=== PATIENT | female | born 1940 | race Caucasian/White ===

== ENCOUNTER 2017-07-19 08:41 | Emergency (ER) | payer MEDICARE, BC ==
[~2017-07-19] VITALS: Ht 162.6 cm; Wt 72.6 kg
[2017-07-19] MEDS: IV NS 0.9% 500 ML BAG IV ONE (09:18)
[2017-07-19 09:24] LABS: BASOPHILS % (AUTO) 0.2 % (0.0-2.0); EOSINOPHILS # (AUTO) 0.3 /CMM (0.0-0.7); EOSINOPHILS % (AUTO) 5.2 % (0.0-6.0); HEMATOCRIT 39 % (33-45); HEMOGLOBIN 12.7 g/dL (11.5-14.8); LYMPHOCYTES # (AUTO) 1.5 /CMM (0.8-4.8); LYMPHOCYTES % (AUTO) 27.2 % (20.0-44.0); MEAN CORPUSCULAR HEMOGLOBIN 29 PG (26.0-33.0); MEAN CORPUSCULAR HGB CONC 32 g/dl (31.0-36.0); MEAN CORPUSCULAR VOLUME 90 fL (82-100); MONOCYTES # (AUTO) 0.1 /CMM (0.1-1.30); MONOCYTES % (AUTO) 2.3 % (2.0-12.0); NEUTROPHILS # (AUTO) 3.5 /CMM (1.8-8.9); NEUTROPHILS % (AUTO) 65.1 % (43.0-81.0); PLATELET COUNT (AUTO) 178 /CMM (150-450); RED BLOOD CELL COUNT(AUTO) 4.35 MIL/uL (4.0-5.2); WHITE BLOOD COUNT (AUTO) 5.4 K/uL (4.3-11.0)
[2017-07-19 09:25] LABS: APPEARANCE,URINE CLEAR (CLEAR); BILIRUBIN,URINE NEGATIVE (NEGATIVE); BLOOD, URINE NEGATIVE Ery/uL (NEGATIVE); COLOR,URINE YELLOW (YELLOW); KETONES,URINE NEGATIVE (NEGATIVE); LEUKOCYTE ESTERASE ,URINE NEGATIVE (NEGATIVE); NITRITE, URINE NEGATIVE (NEGATIVE); PROTEIN,URINE NEGATIVE (NEGATIVE); UGLUCOSE NEGATIVE (NEGATIVE); UROBILINOGEN,URINE 0.2 EU/dL (0.2)
[2017-07-19 09:28] LABS: CARBON DIOXIDE 29 mmol/L (21-32); CHLORIDE 105 mmol/L (98-107); CREATININE 0.8 mg/dL (0.6-1.3); GLUCOSE 113 mg/dL (74-106); POTASSIUM 3.2 mmol/L (3.5-5.1); SODIUM SERUM 144 mmol/L (136-145); UREA NITROGEN, BLOOD 17 mg/dL (7-18)
[2017-07-19 09:32] LABS: CALCIUM, SERUM 8.9 mg/dL (8.5-10.1)
[2017-07-19] MEDS ORDERED: MORPHINE SULFATE INJ 4 MG/ML DISP.SYRIN ONE (10:12)
[2017-07-19] MEDS: MORPHINE SULFATE INJ 2 MG/ML DISP.SYRIN IV ONE (10:21)
[2017-07-19] MEDS ORDERED: CRAN425C PO (10:49)
[2017-07-19] MEDS ORDERED: SACC250C6 PO (10:49)
[2017-07-19] MEDS ORDERED: OXYB5TAB PO (10:49)
[2017-07-19] MEDS ORDERED: PANT40TA4 PO (10:49)
[2017-07-19] MEDS ORDERED: BACL10TA PO (10:49)
[2017-07-19] MEDS ORDERED: SERT100T PO (10:49)
[2017-07-19] MEDS ORDERED: DOCU-170 PO (10:49)
[2017-07-19] MEDS ORDERED: LEVE500T9 PO (10:49)
[2017-07-19] MEDS ORDERED: HYDR12.55 PO (10:49)
[2017-07-19] MEDS ORDERED: ASPI81TA2 PO (10:49)
[2017-07-19] MEDS ORDERED: POTA20TA83 PO (10:49)
[2017-07-19] MEDS ORDERED: CYAN10009 PO (10:49)
[2017-07-19] MEDS ORDERED: ATOR20TA PO (10:49)
[2017-07-19] MEDS ORDERED: CHOL10002 PO (10:49)
[2017-07-19] MEDS ORDERED: LORA10TA7 PO (10:49)
[2017-07-19] MEDS: IV PREMIX D5 1/2NS + KCL 1,000 ML IV ONE (13:30)
[2017-07-19 19:52] VITALS: BP 131/60
== END 2017-07-19 19:54 | disposition short-term general hospital (02) ==
LOC: ER 08:42
DX: S32.011A Stable burst fracture of first lumbar vertebra, initial encounter for closed fracture (principal); E87.6 Hypokalemia; G35 Multiple sclerosis; H40.9 Unspecified glaucoma; I10 Essential (primary) hypertension; K57.30 Diverticulosis of large intestine without perforation or abscess without bleeding; M41.9 Scoliosis, unspecified; M48.04 Spinal stenosis, thoracic region; Z79.82 Long term (current) use of aspirin; W06.XXXA Fall from bed, initial encounter; Y92.89 Other specified places as the place of occurrence of the external cause; Y93.89 Activity, other specified; Y99.8 Other external cause status
CPT/HCPCS: 36415; 72128-TC; 72131-TC; 80048-TC; 81000-TC; 85025-TC; A4606; J2270; J7040; Z7610

== ENCOUNTER 2019-11-11 12:19 | Emergency (ER) | payer MEDICARE, BC ==
[~2019-11-11] VITALS: Ht 160 cm; Wt 58.5 kg
[~2019-11-11 12:19] MED LIST: ASPI-1169 PO; ATOR20TA PO; BACL10TA PO; CHOL10002 PO; CRAN425C6 PO; CYAN-51 PO; DOCU100C36 PO; HYDR12.55 PO; LEVE500T9 PO; LORA10TA7 PO; OXYB-58 PO; PANT40TA4 PO; POTA20TA83 PO; SACC250C PO; SERT100T PO
[2019-11-11 12:31] VITALS: BP 128/60
== END 2019-11-11 13:57 | disposition home or self-care (01) ==
LOC: ER 12:23
DX: R23.8 Other skin changes (principal); G35 Multiple sclerosis; I10 Essential (primary) hypertension; Z79.82 Long term (current) use of aspirin; Z79.899 Other long term (current) drug therapy
CPT/HCPCS: 93971-TC